=== PATIENT | female | born 1985 | race Caucasian/White ===

== ENCOUNTER → 2019-01-20 | Outpatient (CLI) | payer BC ==
--- NOTE | 2019-01-21 07:08 | US ---
EXAMINATION TYPE: US abdomen limited DATE OF EXAM: 01/20/2019 COMPARISON: NONE CLINICAL HISTORY: RUQ pain. RUQ pain EXAM MEASUREMENTS: Liver Length: 17.2 cm Gallbladder Wall: 0.2 cm CBD: 0.2 cm Right Kidney: 11.1 x 4.6 x 5.0 cm Pancreas: wnl Liver: wnl Gallbladder: No stones seen Evidence for sonographic Bazzi's sign: No CBD: wnl Right Kidney: wnl IMPRESSION: 1. No acute process.
--- NOTE | 2019-01-21 07:12 | US ---
EXAMINATION TYPE: US pelvic complete DATE OF EXAM: 01/20/2019 COMPARISON: NONE CLINICAL HISTORY: R10.2 FEMALE PELVIC PAIN. pain and discharge x1 day hx of pcos TECHNIQUE: Transabdominal (TA). EXAM MEASUREMENTS: Uterus: 10.4 x 5.0 x 7.0 cm Endometrial Stripe: 0.7 cm Right Ovary: 3.6 x 2.0 x 2.1 cm Left Ovary: 3.0 x 1.2 x 2.2 cm 1. Uterus: Anteverted wnl 2. Endometrium: wnl 3. Right Ovary: wnl 4. Left Ovary: wnl 5. Bilateral Adnexa: wnl 6. Posterior cul-de-sac: wnl IMPRESSION: No acute process
== END | disposition home or self-care (01) ==
LOC: RADUSWWP 16:57
PROVIDERS: ATTEND Internal Medicine
DX: R10.11 Right upper quadrant pain (principal); R10.2 Pelvic and perineal pain; Z88.1 Allergy status to other antibiotic agents
CPT/HCPCS: 76705; 76856

== ENCOUNTER 2019-01-25 06:40 | Emergency (ER) | payer BC ==
[2019-01-25] MEDS ORDERED: SODIUM CHLORIDE 0.9% 1,000 ML IV STA (07:22)
--- NOTE | 2019-01-25 07:25 | ED ---
General Adult HPI - General Chief complaint: Abdominal Pain Stated complaint: Pelvic/Abdominal Pain Time Seen by Provider: 01/25/19 07:16 Source: patient, RN notes reviewed, old records reviewed Mode of arrival: ambulatory Limitations: no limitations - History of Present Illness Initial comments: 33-year-old female presents for evaluation of abdominal pain. She's had intermittent abdominal pain over the past 2 weeks. This steadily worsened. She states she was seen by her primary care physician or to order ultrasound of both the pelvis and gallbladder. She reported these as normal. She's had persistent symptoms predominantly in the lower abdomen but also complains of some bloating and upper abdominal pain. Denies vomiting. Denies fever. Denies dysuria. She states her last bowel movement was yesterday. No diarrhea. Denies vaginal disc harge, states she is currently on her period. She does have history of PCOS and thought this may be related to cyst rupture. - Related Data Home Medications Medication Instructions Recorded Confirmed Dextroamphetamine/Amphetamine 30 mg PO DAILY 01/25/19 01/25/19 [Adderall] Allergies Allergy/AdvReac Type Severity Reaction Status Date / Time sulfamethoxazole Allergy Unknown Verified 01/25/19 07:56 [From Bactrim] trimethoprim [From Bactrim] Allergy Unknown Verified 01/25/19 07:56 Review of Systems ROS Statement: Those systems with pertinent positive or pertinent negative responses have been documented in the HPI. ROS Other: All systems not noted in ROS Statement are negative. Past Medical History Past Medical History: No Reported History History of Any Multi-Drug Resistant Organisms: None Reported Additional Past Surgical History / Comment(s): wisdom teeth Past Psychological History: ADD/ADHD Smoking Status: Current every day smoker Past Alcohol Use History: Occasional Past Drug Use History: None Reported General Exam Limitations: no limitations General appearance: alert, in no apparent distress Head exam: Present: atraumatic, normocephalic Eye exam: Present: normal appearance ENT exam: Present: normal exam Neck exam: Present: normal inspection. Absent: tenderness, meningismus Respiratory exam: Present: normal lung sounds bilaterally. Absent: respiratory distress, wheezes Cardiovascular Exam: Present: regular rate, normal rhythm GI/Abdominal exam: Present: soft, distended, tenderness (Generalized tenderness, worse on the right lower quadrant). Absent: guarding, rebound Extremities exam: Present: normal inspection, normal capillary refill. Absent: pedal edema, calf tenderness Neurological exam: Present: alert, oriented X3 Psychiatric exam: Present: normal affect, normal mood Skin exam: Present: warm, dry, intact. Absent: cyanosis, diaphoretic Course Vital Signs 01/25/19 01/25/19 01/25/19 06:51 08:00 08:30 Temperature 98.7 F 99.0 F Pulse Rate 91 65 Respiratory 20 16 16 Rate Blood Pressure 120/76 124/78 122/74 O2 Sat by Pulse 100 98 99 Oximetry Medical Decision Making - Medical Decision Making 33-year-old female with 2 weeks of abdominal pain. Pain is generalized, she does have some right lower quadrant tenderness, no rebound or guarding. She had an outpatient ultrasound which is reviewed, she had both ultrasound study of the pelvis and the gallbladder. These were both reviewed and normal. She has mild leukocytosis 13.1, she has normal CMP, urinalysis negative, urine test negative. She has CT showing delayed stool passage and possible enteritis. She does report a change in her bowel movements. Patient is well-appearing with s table vitals. She will be given trial of magnesium supplementation, MiraLAX and increased hydration. She is given GI follow-up. She will return with worsening or changing symptoms. - Lab Data Result diagrams: 01/25/19 07:45 01/25/19 07:45 Lab Results 01/25/19 01/25/19 01/25/19 Range/Units 07:45 07:45 07:45 WBC 13.1 H (3.8-10.6) k/uL RBC 4.12 (3.80-5.40) m/uL Hgb 12.6 (11.4-16.0) gm/dL Hct 38.2 (34.0-46.0) % MCV 92.9 (80.0-100.0) fL MCH 30.5 (25.0-35.0) pg MCHC 32.8 (31.0-37.0) g/dL RDW 12.6 (11.5-15.5) % Plt Count 361 (150-450) k/uL Neutrophils % 74 % Lymphocytes % 15 % Monocytes % 7 % Eosinophils % 3 % Basophils % 0 % Neutrophils # 9.6 H (1.3-7.7) k/uL Lymphocytes # 2.0 (1.0-4.8) k/uL Monocytes # 0.9 (0-1.0) k/uL Eosinophils # 0.4 (0-0.7) k/uL Basophils # 0.0 (0-0.2) k/uL Sodium 138 (137-145) mmol/L Potassium 4.1 (3.5-5.1) mmol/L Chloride 102 (98-107) mmol/L Carbon Dioxide 27 (22-30) mmol/L Anion Gap 9 mmol/L BUN 9 (7-17) mg/dL Creatinine 0.60 (0.52-1.04) mg/dL Est GFR (CKD-EPI)AfAm >90 (>60 ml/min/1.73 sqM) Est GFR (CKD-EPI)NonAf >90 (>60 ml/min/1.73 sqM) Glucose 146 H (74-99) mg/dL Calcium 9.0 (8.4-10.2) mg/dL Total Bilirubin 0.5 (0.2-1.3) mg/dL AST 13 L (14-36) U/L ALT 13 (9-52) U/L Alkaline Phosphatase 69 (38-126) U/L Total Protein 6.9 (6.3-8.2) g/dL Albumin 3.9 (3.5-5.0) g/dL Lipase 63 (23-300) U/L HCG, Quant <2.4 mIU/mL Urine Color Urine Appearance (Clear) Urine pH (5.0-8.0) Ur Specific [place] (1.001-1.035) Urine Protein (Negative) Urine Glucose (UA) (Negative) Urine Ketones (Negative) Urine Blood (Negative) Urine Nitrite (Negative) Urine Bilirubin (Negative) Urine Urobilinogen (<2.0) mg/dL Ur Leukocyte Esterase (Negative) Urine RBC (0-5) /hpf Urine WBC (0-5) /hpf Ur Squamous Epith Cells (0-4) /hpf Urine Bacteria (None) /hpf Urine Mucus (None) /hpf Urine HCG, Qual Not Detected (Not Detectd) 01/25/19 Range/Units 07:45 WBC (3.8-10.6) k/uL RBC (3.80-5.40) m/uL Hgb (11.4-16.0) gm/dL Hct (34.0-46.0) % MCV (80.0-100.0) fL MCH (25.0-35.0) pg MCHC (31.0-37.0) g/dL RDW (11.5-15.5) % Plt Count (150-450) k/uL Neutrophils % % Lymphocytes % % Monocytes % % Eosinophils % % Basophils % % Neutrophils # (1.3-7.7) k/uL Lymphocytes # (1.0-4.8) k/uL Monocytes # (0-1.0) k/uL Eosinophils # (0-0.7) k/uL Basophils # (0-0.2) k/uL Sodium (137-145) mmol/L Potassium (3.5-5.1) mmol/L Chloride (98-107) mmol/L Carbon Dioxide (22-30) mmol/L Anion Gap mmol/L BUN (7-17) mg/dL Creatinine (0.52-1.04) mg/dL Est GFR (CKD-EPI)AfAm (>60 ml/min/1.73 sqM) Est GFR (CKD-EPI)NonAf (>60 ml/min/1.73 sqM) Glucose (74-99) mg/dL Calcium (8.4-10.2) mg/dL Total Bilirubin (0.2-1.3) mg/dL AST (14-36) U/L ALT (9-52) U/L Alkaline Phosphatase (38-126) U/L Total Protein (6.3-8.2) g/dL Albumin (3.5-5.0) g/dL Lipase (23-300) U/L HCG, Quant mIU/mL Urine Color Yellow Urine Appearance Clear (Clear) Urine pH 6.0 (5.0-8.0) Ur Specific [place] 1.013 (1.001-1.035) Urine Protein Negative (Negative) Urine Glucose (UA) Negative (Negative) Urine Ketones Negative (Negative) Urine Blood Moderate H (Negative) Urine Nitrite Negative (Negative) Urine Bilirubin Negative (Negative) Urine Urobilinogen 2.0 (<2.0) mg/dL Ur Leukocyte Esterase Negative (Negative) Urine RBC <1 (0-5) /hpf Urine WBC 4 (0-5) /hpf Ur Squamous Epith Cells 1 (0-4) /hpf Urine Bacteria Rare H (None) /hpf Urine Mucus Few H (None) /hpf Urine HCG, Qual (Not Detectd) Disposition Clinical Impression: Abdominal pain Disposition: HOME SELF-CARE Condition: Good Instructions (If sedation given, give patient instructions): Abdominal Pain (ED) Additional Instructions: Please increase fluid intake, take MiraLAX daily, as well as magnesium supplementation. Is patient prescribed a controlled substance at d/c from ED?: No Referrals: Juliane Drake MD [Primary Care Provider] - 1-2 days Ravindra Guzman MD [STAFF PHYSICIAN] - 1-2 days Time of Disposition: 09:55
[2019-01-25 07:59] LABS: Basophils % (A) 0 %; Eosinophils # (A) 0.4 k/uL (0-0.7); Eosinophils % (A) 3 %; HCT 38.2 % (34.0-46.0); HGB 12.6 gm/dL (11.4-16.0); Lymphocytes % (A) 15 %; MCH 30.5 pg (25.0-35.0); MCHC 32.8 g/dL (31.0-37.0); MCV 92.9 fL (80.0-100.0); Mean Platelet Volume 6.9; Monocytes # (A) 0.9 k/uL (0-1.0); Monocytes % (A) 7 %; Neutrophils # (A) 9.6 k/uL (1.3-7.7); Neutrophils % (A) 74 %; Platelet Count 361 k/uL (150-450); RBC 4.12 m/uL (3.80-5.40); RDW 12.6 % (11.5-15.5); WBC 13.1 k/uL (3.8-10.6)
[2019-01-25 08:11] LABS: ALT 13 U/L (9-52); AST 13 U/L (14-36); African American GFR (CKD) >90 (>60 ml/min/1.73 sqM); Albumin 3.9 g/dL (3.5-5.0); Alkaline Phosphatase 69 U/L (38-126); Anion Gap 9 mmol/L; Blood Urea Nitrogen 9 mg/dL (7-17); Carbon Dioxide 27 mmol/L (22-30); Chloride 102 mmol/L (98-107); Glucose 146 mg/dL (74-99); Lipase 63 U/L (23-300); Potassium 4.1 mmol/L (3.5-5.1); Sodium 138 mmol/L (137-145); Total Bilirubin 0.5 mg/dL (0.2-1.3); Total Protein 6.9 g/dL (6.3-8.2)
[2019-01-25 08:17] LABS: Appearance,Urine Clear (Clear); Bacteria,Urine Rare /hpf; Bilirubin,Urine Negative (Negative); Blood,Urine Moderate (Negative); Color,Urine Yellow; Glucose,Urine (UA) Negative (Negative); Ketones,Urine Negative (Negative); Leukocyte Esterase,Urine Negative (Negative); Mucus,Urine Few /hpf; Nitrite,Urine Negative (Negative); Protein,Urine Negative (Negative); RBC,Urine <1 /hpf (0-5); Specific Gravity,Urine 1.013 (1.001-1.035); Squamous Epithelial Cell,Urine 1 /hpf (0-4); WBC,Urine 4 /hpf (0-5)
[2019-01-25] MEDS ORDERED: KETOROLAC 30 MG/ML 1 ML VIAL IVP STA (08:22)
[2019-01-25 08:43] LABS: HCG,Quantitative Serum <2.4 mIU/mL
[2019-01-25 08:46] VITALS: PULSE 65; RESP 16; TEMP 99
--- NOTE | 2019-01-25 09:33 | CT ---
EXAMINATION TYPE: CT abdomen pelvis w con DATE OF EXAM: 01/25/2019 HISTORY: Pelvic and right lower quadrant pain for [address] DLP: 698.4mGycm Automated Exposure Control for Dose Reduction was Utilized. CONTRAST: CT scan of the abdomen and pelvis is performed without oral but with IV Contrast, patient injected wi th 100 mL of Isovue 300. COMPARISON: limited abdominal ultrasound and pelvic ultrasound from 5 days ago FINDINGS: LUNG BASES: No significant abnormality is appreciated. LIVER/GB: No significant abnormality is appreciated. PANCREAS: No significant abnormality is seen. SPLEEN: No significant abnormality is seen. ADRENALS: No significant abnormality is seen. KIDNEYS: Symmetric cortical medullary uptake and excretion without hydronephrosis seen bilaterally. BOWEL: Evaluation bowel is suboptimal secondary to lack of enteric contrast and patient having little intra-abdominal fat. Small bowel feces sign terminal ileum is noted coronal image 36 for reference. No suspicious small or large bowel dilatation seen. Finding consistent with delayed passage of ingest ed material to colonic level. No suspicious wall thickening in the terminal ileum. There is suggestio n of mild to moderate wall thickening of distal small bowel loops in the right upper pelvis anteriorl y inferior to this. Appendix not seen with certainty. UTERUS/ADNEXA: Anteverted uterus is redemonstrated. Small to moderate amount of free fluid in pelvis extending towards adnexa axial image 72. Left-sided pelvic phlebolith noted. LYMPH NODES: No greater than 1cm abdominal or pelvic lymph nodes are appreciated. OSSEOUS STRUCTURES: No significant abnormality is seen. OTHER: No significant additional abnormality is seen. IMPRESSION: Suboptimal study. Small to moderate amount of free fluid in pelvic cul-de-sac. No bowel o bstruction. Delayed passage of ingested material 2 colonic level. Probable distal enteritis, correlat e clinically for infectious and/or inflammatory etiologies. Terminal ileum felt within normal limits.
[2019-01-25 10:04] VITALS: BP 118/73
== END 2019-01-25 10:10 | disposition home or self-care (01) ==
LOC: EC 06:40
DX: R10.30 Lower abdominal pain, unspecified (principal); R10.10 Upper abdominal pain, unspecified; R14.0 Abdominal distension (gaseous); R10.84 Generalized abdominal pain; R10.813 Right lower quadrant abdominal tenderness; D72.829 Elevated white blood cell count, unspecified; Z32.02 Encounter for pregnancy test, result negative; F17.200 Nicotine dependence, unspecified, uncomplicated; F90.9 Attention-deficit hyperactivity disorder, unspecified type; Z79.899 Other long term (current) drug therapy; Z88.1 Allergy status to other antibiotic agents; Z88.2 Allergy status to sulfonamides
CPT/HCPCS: 36415; 80053; 83690; 85025; 81001; 81025; 84702; 74177; 99284; 96374; J1885; Q9967

== ENCOUNTER 2019-07-26 17:06 | Emergency (ER) | payer BC, OTHER ==
[2019-07-26] MEDS ORDERED: SODIUM CHLORIDE 0.9% 1,000 ML IV ONE (17:39)
--- NOTE | 2019-07-26 17:46 | ED ---
General Adult HPI - General Chief complaint: Abdominal Pain Stated complaint: 6wks preg, cramping Time Seen by Provider: 07/26/19 17:10 Source: patient, RN notes reviewed Mode of arrival: ambulatory Limitations: no limitations - History of Present Illness Initial comments: 34-year-old female presents to the emergency department for a chief complaint of abdominal cramping. Patient states she thinks she is 6 weeks but may be further along. She is unsure of her LMP. Patient states that today she had intermittent left and mid lower abdominal cramping. States this comes and goes. States it feels pelvic in nature. Denies any nausea vomiting or diarrhea. Patient denies any fevers or chills. Patient denies any vaginal bleeding. Patient does have a history of and is currently seeing Dr. Cummings. Patient has no other complaints at this time including shortness of breath, chest pain, nausea or vomiting, headache, or visual changes. - Related Data Home Medications Medication Instructions Recorded Confirmed Dextroamphetamine/Amphetamine 30 mg PO DAILY 01/25/19 01/25/19 [Adderall] Previous Rx's Medication Instructions Recorded Pnv No.95/Ferrous Fum/Folic AC 1 each PO DAILY #30 tablet 07/26/19 [ Multivitamin Tablet] Allergies Allergy/AdvReac Type Severity Reaction Status Date / Time sulfamethoxazole Allergy Unknown Verified 07/26/19 17:07 [From Bactrim] trimethoprim [From Bactrim] Allergy Unknown Verified 07/26/19 17:07 Review of Systems ROS Statement: Those systems with pertinent positive or pertinent negative responses have been documented in the HPI. ROS Other: All systems not noted in ROS Statement are negative. Past Medical History Past Medical History: No Reported History History of Any Multi-Drug Resistant Organisms: None Reported Additional Past Surgical History / Comment(s): wisdom teeth Past Psychological History: ADD/ADHD Smoking Status: Current every day smoker Past Alcohol Use History: Occasional Past Drug Use History: None Reported General Exam Limitations: no limitations General appearance: alert, in no apparent distress Head exam: Present: atraumatic, normocephalic, normal inspection Eye exam: Present: normal appearance, PERRL, EOMI. Absent: scleral icterus, conjunctival injection, periorbital swelling ENT exam: Present: normal exam, mucous membranes moist Neck exam: Present: normal inspection, full ROM. Absent: tenderness, meningismus, lymphadenopathy Respiratory exam: Present: normal lung sounds bilaterally. Absent: respiratory distress, wheezes, rales, rhonchi, stridor Cardiovascular Exam: Present: regular rate, normal rhythm, normal heart sounds. Absent: systolic murmur, diastolic murmur, rubs, gallop, clicks GI/Abdominal exam: Present: soft, normal bowel sounds. Absent: distended, tenderness (no significant LLQ tenderness, ), guarding, rebound, rigid External exam: Present: normal external exam. Absent: erythema, swelling, lesions, lacerations, ecchymosis Speculum exam: Present: normal speculum exam. Absent: erythema, vaginal discharge, cervical discharge, vaginal bleeding, foreign body, tissue, laceration By manual exam: Present: normal by manual exam, adnexal tenderness (minimal LLQ tenderness). Absent: cervical motion tenderness, adnexal mass, uterine enlargement, uterine tenderness Neurological exam: Present: alert Psychiatric exam: Present: normal affect, normal mood Course Vital Signs 07/26/19 07/26/19 07/26/19 17:07 17:58 18:47 Temperature 97.7 F 97.7 F Pulse Rate 83 83 85 Respiratory 16 16 18 Rate Blood Pressure 133/82 133/82 108/69 O2 Sat by Pulse 100 100 100 Oximetry Medical Decision Making - Medical Decision Making exam shows minimal left lower quadrant tenderness. This is more pelvic in nature.CBC CMP unremarkable. Urinalysis unremarkable. Trichomonas is negative. Ultrasound shows a possible early intrauterine gestational sac without adnexal mass. Follow-up recommended in 14 days. She reevaluated, pain is improved. She does have a hCG Quant of 14,000. This will be trended. This will be sent to patient's established [employer]PER[facility] Dr. Cummings. Discussed returning if she has any worsening symptoms or vaginal bleeding. - Lab Data Result diagrams: 07/26/19 17:55 07/26/19 17:55 Lab Results 07/26/19 07/26/19 07/26/19 Range/Units 17:30 17:55 17:55 WBC (3.8-10.6) k/uL RBC (3.80-5.40) m/uL Hgb (11.4-16.0) gm/dL Hct (34.0-46.0) % MCV (80.0-100.0) fL MCH (25.0-35.0) pg MCHC (31.0-37.0) g/dL RDW (11.5-15.5) % Plt Count (150-450) k/uL Neutrophils % % Lymphocytes % % Monocytes % % Eosinophils % % Basophils % % Neutrophils # (1.3-7.7) k/uL Lymphocytes # (1.0-4.8) k/uL Monocytes # (0-1.0) k/uL Eosinophils # (0-0.7) k/uL Basophils # (0-0.2) k/uL Sodium 136 L (137-145) mmol/L Potassium 4.2 (3.5-5.1) mmol/L Chloride 104 (98-107) mmol/L Carbon Dioxide 24 (22-30) mmol/L Anion Gap 8 mmol/L BUN 15 (7-17) mg/dL Creatinine 0.65 (0.52-1.04) mg/dL Est GFR (CKD-EPI)AfAm >90 (>60 ml/min/1.73 sqM) Est GFR (CKD-EPI)NonAf >90 (>60 ml/min/1.73 sqM) Glucose 126 H (74-99) mg/dL Calcium 9.7 (8.4-10.2) mg/dL Total Bilirubin 0.5 (0.2-1.3) mg/dL AST 21 (14-36) U/L ALT 25 (4-34) U/L Alkaline Phosphatase 43 (38-126) U/L Total Protein 7.8 (6.3-8.2) g/dL Albumin 4.7 (3.5-5.0) g/dL HCG, Quant 79070.4 mIU/mL Urine Color Urine Appearance (Clear) Urine pH (5.0-8.0) Ur Specific [place] (1.001-1.035) Urine Protein (Negative) Urine Glucose (UA) (Negative) Urine Ketones (Negative) Urine Blood (Negative) Urine Nitrite (Negative) Urine Bilirubin (Negative) Urine Urobilinogen (<2.0) mg/dL Ur Leukocyte Esterase (Negative) Urine HCG, Qual Detected (Not Detectd) Trichomonas Ag (Rapid) Negative (Negative) 07/26/19 07/26/19 Range/Units 17:55 17:55 WBC 11.4 H (3.8-10.6) k/uL RBC 4.14 (3.80-5.40) m/uL Hgb 12.8 (11.4-16.0) gm/dL Hct 38.6 (34.0-46.0) % MCV 93.3 (80.0-100.0) fL MCH 31.0 (25.0-35.0) pg MCHC 33.2 (31.0-37.0) g/dL RDW 12.4 (11.5-15.5) % Plt Count 318 (150-450) k/uL Neutrophils % 67 % Lymphocytes % 22 % Monocytes % 6 % Eosinophils % 4 % Basophils % 0 % Neutrophils # 7.7 (1.3-7.7) k/uL Lymphocytes # 2.5 (1.0-4.8) k/uL Monocytes # 0.6 (0-1.0) k/uL Eosinophils # 0.4 (0-0.7) k/uL Basophils # 0.0 (0-0.2) k/uL Sodium (137-145) mmol/L Potassium (3.5-5.1) mmol/L Chloride (98-107) mmol/L Carbon Dioxide (22-30) mmol/L Anion Gap mmol/L BUN (7-17) mg/dL Creatinine (0.52-1.04) mg/dL Est GFR (CKD-EPI)AfAm (>60 ml/min/1.73 sqM) Est GFR (CKD-EPI)NonAf (>60 ml/min/1.73 sqM) Glucose (74-99) mg/dL Calcium (8.4-10.2) mg/dL Total Bilirubin (0.2-1.3) mg/dL AST (14-36) U/L ALT (4-34) U/L Alkaline Phosphatase (38-126) U/L Total Protein (6.3-8.2) g/dL Albumin (3.5-5.0) g/dL HCG, Quant mIU/mL Urine Color Yellow Urine Appearance Clear (Clear) Urine pH 6.0 (5.0-8.0) Ur Specific [place] 1.021 (1.001-1.035) Urine Protein Negative (Negative) Urine Glucose (UA) Negative (Negative) Urine Ketones Negative (Negative) Urine Blood Negative (Negative) Urine Nitrite Negative (Negative) Urine Bilirubin Negative (Negative) Urine Urobilinogen <2.0 (<2.0) mg/dL Ur Leukocyte Esterase Negative (Negative) Urine HCG, Qual (Not Detectd) Trichomonas Ag (Rapid) (Negative) Disposition Clinical Impression: Abdominal pain during Disposition: HOME SELF-CARE Condition: Good Instructions (If sedation given, give patient instructions): Abdominal Pain in (ED) Additional Instructions: please take vitamins. Please take Tylenol for pain. If any worsening symptoms occur return to the emergency department. Otherwise repeat blood work in 2-3 days and follow up with your COMM[employer]ICATION [employer]S [employer]ER. Prescriptions: Pnv No.95/Ferrous Fum/Folic AC [ Multivitamin Tablet] 1 each PO DAILY #30 tablet Is patient prescribed a controlled substance at d/c from ED?: No Referrals: Juliane Drake MD [Primary Care Provider] - 1-2 days Time of Disposition: 20:13
[2019-07-26 18:13] LABS: Basophils % (A) 0 %; Eosinophils # (A) 0.4 k/uL (0-0.7); Eosinophils % (A) 4 %; HCT 38.6 % (34.0-46.0); HGB 12.8 gm/dL (11.4-16.0); Lymphocytes # (A) 2.5 k/uL (1.0-4.8); Lymphocytes % (A) 22 %; MCHC 33.2 g/dL (31.0-37.0); MCV 93.3 fL (80.0-100.0); Mean Platelet Volume 7.2; Monocytes # (A) 0.6 k/uL (0-1.0); Monocytes % (A) 6 %; Neutrophils # (A) 7.7 k/uL (1.3-7.7); Neutrophils % (A) 67 %; Platelet Count 318 k/uL (150-450); RBC 4.14 m/uL (3.80-5.40); RDW 12.4 % (11.5-15.5); WBC 11.4 k/uL (3.8-10.6)
[2019-07-26 18:19] LABS: Appearance,Urine Clear (Clear); Bilirubin,Urine Negative (Negative); Blood,Urine Negative (Negative); Color,Urine Yellow; Glucose,Urine (UA) Negative (Negative); Ketones,Urine Negative (Negative); Leukocyte Esterase,Urine Negative (Negative); Nitrite,Urine Negative (Negative); Protein,Urine Negative (Negative); Specific Gravity,Urine 1.021 (1.001-1.035); Urobilinogen,Urine <2.0 mg/dL (<2.0)
[2019-07-26 18:22] LABS: ALT 25 U/L (4-34); AST 21 U/L (14-36); African American GFR (CKD) >90 (>60 ml/min/1.73 sqM); Albumin 4.7 g/dL (3.5-5.0); Alkaline Phosphatase 43 U/L (38-126); Anion Gap 8 mmol/L; Blood Urea Nitrogen 15 mg/dL (7-17); Calcium 9.7 mg/dL (8.4-10.2); Carbon Dioxide 24 mmol/L (22-30); Chloride 104 mmol/L (98-107); Glucose 126 mg/dL (74-99); Non-African American GFR(CKD) >90 (>60 ml/min/1.73 sqM); Potassium 4.2 mmol/L (3.5-5.1); Sodium 136 mmol/L (137-145); Total Bilirubin 0.5 mg/dL (0.2-1.3); Total Protein 7.8 g/dL (6.3-8.2)
[2019-07-26 18:49] VITALS: RESP 18
[2019-07-26 19:04] LABS: HCG,Quantitative Serum 14336.4 mIU/mL
--- NOTE | 2019-07-26 19:53 | US ---
EXAMINATION TYPE: Transabdominal DATE OF EXAM: 07/26/2019 7:40 PM COMPARISON: US 2018 CLINICAL HISTORY: pain. Pain x 1 day. LMP unknown. Hx PCOS, LEEP, . . EXAM PERFORMED: Transabdominal (TA) EXAM MEASUREMENTS: GESTATIONAL AGE / DATING Physician Established: Not yet established. Dates by LMP: Unknown Dates by First Scan: This is first scan Dates by Current Scan for: Only possible gestational sac is seen at this time. (5 weeks/4 days) EDC: 03/23/2020 MATERNAL ANATOMY Uterus: 10.1 x 8.4 x 5.4 cm. Right Ovary: Not visualized. Left Ovary: 3.8 x 2.6 x 2.2 cm. Post CDS / Adnexa: Appear to be wnl Presence of free fluid: none seen Presence of corpus luteal cyst: none seen Presence of subchorionic bleed: not seen GESTATION / SURVEY MSD: 1.33 cm. (5 weeks/4 days) IUP: Only possible gestational sac is seen at this time. Date of LMP: Unknown Beta HcG (if available): 14,336.4 *Patient refused transvaginal exam at this time. IMPRESSION: Possible early intrauterine gestational sac. This measures 14 x 3 x 22 mm. No adnexal mass. Follow-up exam recommended in 14 days to confirm a living fetus of clinically indicated.
[2019-07-26 20:36] VITALS: BP 123/71; PULSE 94; TEMP 98.2
[2019-07-27 16:34] LABS: C. trachomatis,PCR Positive (Neg,Equiv); Chlamydia trachomatis Source Vagina
[2019-07-27 16:46] LABS: N. gonorrhoeae,PCR Negative (Neg,Equiv); Neisseria Source Vagina
== END 2019-07-26 20:36 | disposition home or self-care (01) ==
LOC: EC 17:06
DX: O99.89 Other specified diseases and conditions complicating pregnancy, childbirth and the puerperium (principal); R10.32 Left lower quadrant pain; O99.341 Other mental disorders complicating pregnancy, first trimester; F90.9 Attention-deficit hyperactivity disorder, unspecified type; O99.331 Smoking (tobacco) complicating pregnancy, first trimester; F17.200 Nicotine dependence, unspecified, uncomplicated; Z88.2 Allergy status to sulfonamides; Z79.899 Other long term (current) drug therapy; Z98.890 Other specified postprocedural states; Z3A.01 Less than 8 weeks gestation of pregnancy
CPT/HCPCS: 36415; 76801; 80053; 81003; 81025; 84702; 85025; 87070; 87491; 87591; 87808; 96360; 96361; 99284

== ENCOUNTER → 2019-08-16 | Outpatient (CLI) | payer OTHER ==
[2019-08-16 13:45] LABS: HCT 36.3 % (34.0-46.0); HGB 12.1 gm/dL (11.4-16.0); MCH 31.4 pg (25.0-35.0); MCHC 33.3 g/dL (31.0-37.0); MCV 94.2 fL (80.0-100.0); Mean Platelet Volume 7.4; Platelet Count 257 k/uL (150-450); RBC 3.86 m/uL (3.80-5.40); RDW 12.2 % (11.5-15.5); WBC 10.1 k/uL (3.8-10.6)
[2019-08-16 19:51] LABS: African American GFR (CKD) 139.8 (60.0-200.0); Non-African American GFR(CKD) 120.6 (60.0-200.0)
[2019-08-16 20:21] LABS: Hemoglobin A1C 6.2 % (4.0-6.0)
[2019-08-16 21:01] LABS: Hepatitis B Surface Antigen Non-Reactive (Non-Reactive)
== END | disposition home or self-care (01) ==
LOC: LABWHC1 12:10
PROVIDERS: ATTEND Obstetrics & Gynecology
DX: Z34.81 Encounter for supervision of other normal pregnancy, first trimester (principal)
CPT/HCPCS: 36415; 82565; 82950; 83036; 85027; 86762; 86780; 86850; 86900; 86901; 87340

== ENCOUNTER → 2019-08-19 | Outpatient (CLI) | payer OTHER ==
--- NOTE | 2019-08-19 22:04 | US ---
EXAMINATION TYPE: Transabdominal DATE OF EXAM: 08/19/2019 4:36 PM COMPARISON: Prior ultrasound July 26, 2019 CLINICAL HISTORY: Z36 confirm dates. Confirm dates. EXAM PERFORMED: Transabdominal (TA) EXAM MEASUREMENTS: GESTATIONAL AGE / DATING Physician Established: (09 weeks/0 days) EDC: 03/23/2020 Dates by LMP: ` (9 weeks/0 days) EDC: 03/23/2020 Dates by First Scan: (5 weeks/4 days) EDC: 03/23/2020 Dates by Current Scan for: ( 8 weeks/6 days) EDC: 03/24/2020 MATERNAL ANATOMY Uterus: 13.7 x 6.9 x 10.6 cm Right Ovary: Obscured by bowel gas. Left Ovary: Obscured by bowel gas. Post CDS / Adnexa: wnl Presence of free fluid: no Presence of corpus luteal cyst: no Presence of subchorionic bleed: no GESTATION / SURVEY CRL: 2.19 cm (8 weeks/6 days) Yolk Sac (normal less than 6mm): .4mm Heart Rate: 174 bpm Rhythm: Normal IUP: Viable IUP Single live intrauterine gestation is now confirmed as the gestational sac, yolk sac, and pole are identified on current study. No free fluid in pelvic cul-de-sac. Neither ovary is identified but no suspicious adnexal lesions are seen on images saved. IMPRESSION: Confirmation of single live intrauterine . Mean crown-rump length is 2.2 cm felicity esponding to 8 week 6 day old fetus.
== END | disposition home or self-care (01) ==
LOC: RADUSWWP 16:19
PROVIDERS: ATTEND Obstetrics & Gynecology
DX: Z36.9 Encounter for antenatal screening, unspecified (principal)
CPT/HCPCS: 76801

== ENCOUNTER 2020-03-20 09:56 | Inpatient (IN) | payer OTHER ==
[2020-03-16 11:59] VITALS: BMI 31.1
--- NOTE | 2020-03-17 12:48 | P.HPOB ---
History of Present Illness H&P Date: 03/17/20 Chief Complaint: Patient is presenting for repeat and tubal ligation This patient is a pleasant 34-year-old 3 para 2 female estimated date of confinement 03/23/2020 estimated gestational age 39-4/7 weeks who presents to labor and delivery for elective repeat section and also requesting permanent sterilization. is been complicated by most likely pre- gestational insulin-dependent diabetes. She's been seen by maternal medicine and has been having her diabetes controlled by them. Patient's history is such that in her previous in 2005 she had an insulin pump for gestational diabetes. Patient did not have any regular follow-up in the and term and most likely had diabetes throughout that time period until this . Patient had a previous section and she is requested repeat. Also requesting permanent sterilization. testing has been normal including a level III ultrasound cardiac echo. She is also been on acyclovir since approximately 34 weeks due to history of HSV and she did develop a lesion on the inner thigh at that time. is also been complicated by tobacco use and a positive first trimester chlamydial culture with a negative test of cure. Review of Systems Genitourinary: Reports Menstruation: Reports amenorrhea Past Medical History Past Medical History: Atrial Fibrillation, Diabetes Mellitus Additional Past Medical History / Comment(s): 2011 A-Fib, resolved. Gestational Diabetes. Herpes. currently. History of Any Multi-Drug Resistant Organisms: None Reported Past Surgical History: Section Additional Past Surgical History / Comment(s): [place] teeth. C-S x1. Past Anesthesia/Blood Transfusion Reactions: No Reported Reaction Past Psychological History: No Psychological Hx Reported Smoking Status: Current every day smoker Past Alcohol Use History: None Reported Past Drug Use History: None Reported - Past Family History Father Family Medical History: Cancer Additional Family Medical History / Comment(s): myeloid leukemia Medications and Allergies Home Medications Medication Instructions Recorded Confirmed Type Pnv No.95/Ferrous Fum/Folic AC 1 each PO DAILY #30 tablet 07/26/19 03/16/20 Rx [ Multivitamin Tablet] Acetaminophen [Tylenol Extra 500 - 1,000 mg PO DIRECTED PRN 03/16/20 03/16/20 History Strength] Acyclovir [Zovirax] 400 mg PO TID 03/16/20 03/16/20 History Allergies Allergy/AdvReac Type Severity Reaction Status Date / Time sulfamethoxazole Allergy Unknown Verified 03/16/20 11:44 [From Bactrim] trimethoprim [From Bactrim] Allergy worsened Verified 03/16/20 11:44 UTI Exam - OBG Physical Exam Abdomen: bowel sounds normal, no diffuse tenderness, no bruit present, no guarding noted, no hepatomegaly, no splenomegaly, no mass Vulva: both: normal Vagina: normal moisture, no discharge Cervix: no lesion, no discharge Uterus: enlarged Results blood work shows she is A-, rubella immune, RPR nonreactive, hepatitis B is negative, Glucola was 193 in the first trimester with a hemoglobin A1c of 6.2. Group B strep was negative, level III ultrasound and cardiac echoes were normal. Patient received RhoGAM on January 09. Patient declined TDAP. Assessment and Plan Assessment: This is a pleasant 34-year-old 3 para 1 female 39-4/7 weeks gestation is admitted to labor and delivery for repeat low transverse section and also requesting permanent sterilization with tubal ligation. Plan is repeat low transverse section and bilateral partial salpingectomy. Patient also has pre-gestational diabetes. She also has a history of herpes and has been on acyclovir. I have discussed the surgery in detail with the patient. She understands a tubal ligation is considered permanent however there is a failure rate of approximately 5 or less per thousand procedures done. She understands surgery itself has risks including risks of infection, bleeding, possible injury bowel, bladder, vessels, and/or other organs. She understands risk of DVT and/or pulmonary embolism. All the patient's questions are answered and a written consent is obtained. (1) 39 weeks gestation of Status: Acute Code(s): Z3A.39 - 39 WEEKS GESTATION OF SNOMED Code(s): 95625079 (2) Pregestational diabetes mellitus, modified White class B Status: Acute Code(s): O24.319 - UNSP PRE-EXISTING DIABETES IN , UNSP TRIMESTER SNOMED Code(s): 35888465 (3) Previous delivery affecting Status: Acute Code(s): O34.219 - MATERNAL CARE FOR UNSP TYPE SCAR FROM PREVIOUS DEL SNOMED Code(s): 426636899 (4) Family planning Status: Acute Code(s): Z30.09 - ENCOUNTER FOR OTH GENERAL CNSL AND ADVICE ON CONTRACEPTION SNOMED Code(s): 466846379
[2020-03-20] MEDS ORDERED: CITRIC ACID-SODIUM CITRATE 15 ML CUP PO ONE (10:08)
[2020-03-20] MEDS ORDERED: LACTATED RINGERS 1,000 ML IV ONE (10:08)
[2020-03-20] MEDS ORDERED: LACTATED RINGERS 1,000 ML IV SCH (10:08)
[2020-03-20 10:38] LABS: Basophils % (A) 0 %; Eosinophils # (A) 0.1 k/uL (0-0.7); Eosinophils % (A) 1 %; HCT 32.7 % (34.0-46.0); HGB 10.9 gm/dL (11.4-16.0); Lymphocytes % (A) 17 %; MCH 30.5 pg (25.0-35.0); MCHC 33.3 g/dL (31.0-37.0); MCV 91.7 fL (80.0-100.0); Monocytes # (A) 0.6 k/uL (0-1.0); Monocytes % (A) 5 %; Neutrophils # (A) 9.2 k/uL (1.3-7.7); Neutrophils % (A) 76 %; Platelet Count 267 k/uL (150-450); RBC 3.56 m/uL (3.80-5.40); RDW 13.9 % (11.5-15.5); WBC 12.1 k/uL (3.8-10.6)
[2020-03-20] MEDS ORDERED: fentaNYL (PF) 50 MCG/ML 2 ML AMP ONE (12:24)
[2020-03-20] MEDS ORDERED: KETOROLAC 30 MG/ML 1 ML VIAL ONE (12:24)
[2020-03-20] MEDS ORDERED: MORPHINE SULFATE (PF) 0.3 MG/0.3 ML SYR ONE (12:24)
[2020-03-20] MEDS ORDERED: ONDANSETRON 4 MG/2 ML VIAL ONE (12:24)
[2020-03-20] MEDS ORDERED: FAMOTIDINE 20 MG/2 ML VIAL ONE (12:24)
[2020-03-20] MEDS ORDERED: DEXAMETHASONE SOD PHOSPHATE 4 MG/ML 1 ML VIAL ONE (12:24)
[2020-03-20] MEDS ORDERED: KETOROLAC 30 MG/ML 1 ML VIAL IVP PRN (12:59)
[2020-03-20] MEDS ORDERED: diphenhydrAMINE 50 MG/ML 1 ML VIAL IVP PRN ×2 (12:59→13:16)
[2020-03-20] MEDS ORDERED: ONDANSETRON 4 MG/2 ML VIAL IVP PRN (12:59)
[2020-03-20] MEDS ORDERED: NALOXONE 0.4 MG/ML 1 ML VIAL IV PRN (12:59)
[2020-03-20] MEDS ORDERED: HYDROmorphone 0.5 MG/0.5 ML SYRINGE IVP PRN (12:59)
[2020-03-20] MEDS ORDERED: ZOLPIDEM 5 MG TAB PO PRN (13:16)
[2020-03-20] MEDS ORDERED: diphenhydrAMINE 25 MG CAP PO PRN (13:16)
[2020-03-20] MEDS ORDERED: IBUPROFEN 600 MG TAB PO PRN (13:16)
[2020-03-20] MEDS ORDERED: Rhogam IMMUNE GLOBULIN 1,500 UNIT/1 ML IM ONE (13:16)
[2020-03-20] MEDS ORDERED: METOCLOPRAMIDE 5 MG/ML 2 ML VIAL IVP PRN (13:16)
[2020-03-20] MEDS ORDERED: ACETAMINOPHEN TAB 325 MG TAB PO PRN (13:16)
[2020-03-20] MEDS ORDERED: SIMETHICONE 80 MG CHEWABLE PO PRN (13:16)
[2020-03-20] MEDS ORDERED: OXYTOCIN 20 UNITS/1000 ML NS 1,000 ML IV SCH (13:30)
[2020-03-20 14:05] LABS: Glucose,Whole Blood 119 mg/dL (75-99)
[2020-03-20 16:37] LABS: Glucose,Whole Blood 107 mg/dL (75-99)
--- NOTE | 2020-03-20 17:54 | P.OP ---
Date of Procedure: 03/20/20 Preoperative Diagnosis: #1: 39-4/7 week intrauterine . #2: Previous section requesting repeat. #3: Multi parity desires permanent sterilization Postoperative Diagnosis: Same Procedure(s) Performed: Repeat low transverse section and bilateral Filshie clip application. Anesthesia: spinal Surgeon: Bk Cummings Director Call Center Sales #1: Reg Orellana Estimated Blood Loss (ml): 900 Pathology: other (Placenta) Condition: stable Disposition: floor Indications for Procedure: Please see dictated H&P for intimate details of this patient's admission. Brief summary is a pleasant 34-year-old 3 para 1 female 39-4/7 weeks gestation is admitted to labor and delivery for elective repeat section and also requesting permanent sterilization. Patient understands this procedure and risks. She understands that a tubal ligation is considered permanent although is a failure rate of approximately 5 or less per thousand procedures done. Patient also understands surgery itself and apparently has risks and risks of infection, bleeding, possible injury bowel, bladder, vessels, and/or other organs. All the patient's questions are answered written consent is obtained. Operative Findings: This patient had a vigorous viable female infant Apgars 9 and 9 delivery time is 1244 hrs. Uterus tubes and ovaries appeared normal Description of Procedure: This patient is taken to the operating room where she is sat up and spinal anesthetic is administered without incident. Patient are to had a Gracia catheter placed to straight drain. Patient has abdominal prep and drape. After the appropriate timeout scalpels taken previous Pfannenstiel incision is incised. A second scalpel is taken down the fascia the fascia scored with a knife. Fascial incision extended bilaterally using the Valencia scissors. Fascia is then dissected sharply off the rectus muscles. Rectus muscles are the peritoneum identified and entered sharply. Peritoneal incision extended superior and inferior without difficulty. Bladder blade is then placed. Bladder peritoneum was taken off the lower uterine segment.'s note this time the lower uterine segment is not well-developed. Scalpels taken a low transverse uterine incision is made. There is loss of clear fluid. This incision extended bluntly. Despite attempts of fundal pressure unable to deliver the 's head through this incision, most likely due to the very small lower uterine segment. I extended more bluntly. A vacuum was then placed and with 1 application 's head is easily delivered through the incision. Mouth and nares are bulb suctioned. There is no evidence of nuchal cord. With fundal pressure we then have deliver the rest this infant's body. This is a vigorous viable female infant Apgars 9 and 9 delivery time is 1244 hrs. After delivery of the the umbilical cords doubly clamped and cut appears to be trivascular. Placenta is then manually extracted intact. The uterus is quite bulky, however it is externalized. Uterine incision demarcated with Messina clamps. The cavity is explored and appears to be clear of all debris. Uterine incision closed using 0 Vicryl running locked fashion 2 layers. Bladder peritoneum was reapproximated using a 3-0 Vicryl. It was difficult to remove the uterus at this time I felt best to place Filshie clips and set a suture on the fallopian tubes. Filshie clips is applied to the tubes bilaterally approximate 4 cm from the cornual insertion. Complete blockage of both fallopian tubes is noted. In the Filshie clips appear to be in place. The e xcess fluid was then removed from the abdomen and pelvis. Uterus is then placed back into the abdomen. Final inspection incision shows to be hemostatic. Final inspection of the Filshie clips shows a to be in place. This completed the parietal peritoneum was then identified and closed using 0 Vicryl running fashion. Rectus muscles were approximate 0 Vicryl interrupted fashion. Fascial incision then closed using 0 PDS. Fascial incision is intact and hemostatic. Subcutaneous tissues and closed using a 3-0 Vicryl. Skin is and closed using sera. All counts are correct 3. There are no complications. and mother are stable delivery room.
[2020-03-20 18:27] LABS: Hemoglobin A1C 6.3 % (4.0-6.0)
[2020-03-20] MEDS: LACTATED RINGERS 1,000 ML IV SCH ×2 (20:38→22:38)
[2020-03-20] MEDS: SENNOSIDES-DOCUSATE SODIUM 1 EACH TAB PO SCH (20:39)
[2020-03-20 21:34] LABS: Glucose,Whole Blood 171 mg/dL (75-99)
[2020-03-20] MEDS: KETOROLAC 30 MG/ML 1 ML VIAL IVP PRN (21:47)
[2020-03-21] MEDS: KETOROLAC 30 MG/ML 1 ML VIAL IVP PRN (04:59)
[2020-03-21 05:47] LABS: Basophils % (A) 0 %; Eosinophils # (A) 0.1 k/uL (0-0.7); Eosinophils % (A) 1 %; HCT 29.3 % (34.0-46.0); HGB 9.7 gm/dL (11.4-16.0); Lymphocytes # (A) 2.8 k/uL (1.0-4.8); Lymphocytes % (A) 17 %; MCH 30.8 pg (25.0-35.0); MCHC 33.3 g/dL (31.0-37.0); MCV 92.6 fL (80.0-100.0); Mean Platelet Volume 7.9; Monocytes # (A) 0.9 k/uL (0-1.0); Monocytes % (A) 6 %; Neutrophils # (A) 12.3 k/uL (1.3-7.7); Neutrophils % (A) 75 %; Platelet Count 243 k/uL (150-450); RBC 3.17 m/uL (3.80-5.40); RDW 13.8 % (11.5-15.5); WBC 16.4 k/uL (3.8-10.6)
--- NOTE | 2020-03-21 05:56 | P.PNOBGPC ---
Subjective - Subjective Patient reports: Reports appetite normal, Reports voiding normally, Reports pain well controlled, Reports ambulating normally : doing well Objective - Vital Signs Latest vital signs: Vital Signs Temp Pulse Resp BP Pulse Ox 03/21/20 05:51 16 03/21/20 04:15 98.3 F 56 L 14 114/75 98 03/21/20 02:00 14 03/21/20 00:00 97.9 F 63 16 119/69 97 03/20/20 22:00 16 03/20/20 20:00 97.9 F 60 16 128/69 99 03/20/20 18:58 16 03/20/20 17:00 16 03/20/20 15:59 98.3 F 55 L 16 122/75 98 03/20/20 15:04 65 16 115/63 98 03/20/20 14:21 69 16 118/57 97 03/20/20 14:06 63 16 118/56 98 03/20/20 13:59 16 98 03/20/20 13:36 63 16 126/80 99 03/20/20 13:21 97.1 F L 68 16 118/68 99 03/20/20 12:59 16 98 03/20/20 10:08 97.7 F 79 18 128/65 98 Intake and Output 03/20/20 03/20/20 03/21/20 14:59 22:59 06:59 Intake Total 950 Output Total 1764 400 175 Balance -814 -400 -175 Intake: IV 900 Oral 50 Output: Urine 400 175 Uretheral (Gracia) 400 Estimated Blood Loss 1764 Other: Voiding Method Indwelling Catheter Weight 84.822 kg - Exam Lungs: bilateral: normal Chest: Normal S1, Normal S2 Extremities: Present: normal Abdomen: Present: normal appearance, soft. Absent: distention, tenderness Incision: Present: normal, dry, intact Uterus: Present: normal, firm - Labs Labs: Abnormal Lab Results - Last 24 Hours (Table) 03/20/20 03/20/20 03/20/20 Range/Units 10:25 10:25 14:04 WBC 12.1 H (3.8-10.6) k/uL RBC 3.56 L (3.80-5.40) m/uL Hgb 10.9 L (11.4-16.0) gm/dL Hct 32.7 L (34.0-46.0) % Neutrophils # 9.2 H (1.3-7.7) k/uL POC Glucose (mg/dL) 119 H (75-99) mg/dL Hemoglobin A1c 6.3 H (4.0-6.0) % 03/20/20 03/20/20 03/21/20 Range/Units 16:35 21:32 05:23 WBC 16.4 H (3.8-10.6) k/uL RBC 3.17 L (3.80-5.40) m/uL Hgb 9.7 L (11.4-16.0) gm/dL Hct 29.3 L (34.0-46.0) % Neutrophils # 12.3 H (1.3-7.7) k/uL POC Glucose (mg/dL) 107 H 171 H (75-99) mg/dL Hemoglobin A1c (4.0-6.0) % Assessment and Plan Assessment: Postoperative day #1. Patient is resting without complaints. Vital signs are stable she is afebrile. Uterus is firm nontender she's having normal lochia. CBC today shows her hemoglobin was appropriate at 9.7. Incision is intact and dry. She had 1 elevated blood sugar last night after having some pop. My impression this is a normal course. Did discuss with the patient again in regards to her blood sugars and she understands that upon discharge she will need to follow up with her PCP for most likely pre-gestational diabetes. (1) 39 weeks gestation of Current Visit: No Status: Acute Code(s): Z3A.39 - 39 WEEKS GESTATION OF SNOMED Code(s): 48053225 (2) Pregestational diabetes mellitus, modified White class B Current Visit: No Status: Acute Code(s): O24.319 - UNSP PRE-EXISTING DIABETES IN , UNSP TRIMESTER SNOMED Code(s): 37454003 (3) Previous delivery affecting Current Visit: No Status: Acute Code(s): O34.219 - MATERNAL CARE FOR UNSP TYPE SCAR FROM PREVIOUS DEL SNOMED Code(s): 823234397 (4) Family planning Current Visit: No Status: Acute Code(s): Z30.09 - ENCOUNTER FOR OTH GENERAL CNSL AND ADVICE ON CONTRACEPTION SNOMED Code(s): 048437709
--- NOTE | 2020-03-21 05:57 | P.PN ---
Progress Note - Text Progress Note Date: 03/21/20 Postoperative day 1 status post section under spinal anesthesia, and intrathecal morphine given for postoperative analgesia, patient doing well, there is a anesthesia related competitions. Patient had no headache, vital signs stable Assessment and plan = postop day 1 status post , doing well there is no anesthesia related complication
[2020-03-21] MEDS: LACTATED RINGERS 1,000 ML IV SCH (06:04)
[2020-03-21 07:48] LABS: Glucose,Whole Blood 118 mg/dL (75-99)
[2020-03-21] MEDS ORDERED: INSULIN ASPART (NovoLOG) 100 UNIT/ML VIAL SQ PRN (07:52)
[2020-03-21] MEDS: SENNOSIDES-DOCUSATE SODIUM 1 EACH TAB PO SCH ×2 (08:05→20:21)
[2020-03-21 12:11] LABS: Glucose,Whole Blood 113 mg/dL (75-99)
[2020-03-21] MEDS ORDERED: ACETAMINOPHEN TAB 325 MG TAB PO PRN (13:57)
[2020-03-21 17:22] LABS: Glucose,Whole Blood 122 mg/dL (75-99)
[2020-03-21] MEDS ORDERED: HYDROcodone/APAP 7.5-325MG 1 EACH TAB PO PRN (19:57)
[2020-03-21] MEDS: HYDROcodone/APAP 5-325MG 1 EACH TAB PO PRN (20:21)
[2020-03-21] MEDS: SIMETHICONE 80 MG CHEWABLE PO PRN (20:22)
[2020-03-21 21:35] LABS: Glucose,Whole Blood 131 mg/dL (75-99)
[2020-03-21] MEDS: IBUPROFEN 600 MG TAB PO PRN (23:15)
[2020-03-22] MEDS: LACTATED RINGERS 1,000 ML IV SCH (00:47)
[2020-03-22 00:57] VITALS: RESP 16
[2020-03-22] MEDS: HYDROcodone/APAP 5-325MG 1 EACH TAB PO PRN ×2 (02:07→07:44)
[2020-03-22] MEDS: IBUPROFEN 600 MG TAB PO PRN (05:07)
--- NOTE | 2020-03-22 06:38 | P.PNOBGPC ---
Subjective - Subjective Patient reports: Reports appetite normal, Reports voiding normally, Reports pain well controlled, Reports ambulating normally : doing well Objective - Vital Signs Latest vital signs: Vital Signs Temp Pulse Resp BP 03/22/20 00:00 98.6 F 62 16 136/71 03/21/20 16:00 97.9 F 68 17 137/68 03/21/20 12:16 97.5 F L 66 16 117/74 03/21/20 08:00 98.1 F 69 16 127/61 Intake and Output 03/21/20 03/21/20 03/22/20 14:59 22:59 06:59 Intake Total 480 Balance 480 Intake: Oral 480 Other: # Voids 1 - Exam Lungs: bilateral: normal Chest: Normal S1, Normal S2 Extremities: Present: normal Abdomen: Present: normal appearance, soft. Absent: distention, tenderness Incision: Present: normal, dry, intact Uterus: Present: normal, firm - Labs Labs: Abnormal Lab Results - Last 24 Hours (Table) 03/21/20 03/21/20 03/21/20 Range/Units 07:43 12:09 17:19 POC Glucose (mg/dL) 118 H 113 H 122 H (75-99) mg/dL 03/21/20 Range/Units 21:31 POC Glucose (mg/dL) 131 H (75-99) mg/dL Assessment and Plan Assessment: *Operative day #2. Patient is resting without complaints. Patient wishes to go home. Vital signs are stable and she is afebrile. Uterus is firm nontender and her incision is intact and dry. Glucoses is been fine she had one dose sliding scale insulin. Plan today is to continue routine care and discharge home later this morning. (1) 39 weeks gestation of Current Visit: No Status: Acute Code(s): Z3A.39 - 39 WEEKS GESTATION OF SNOMED Code(s): 33334678 (2) Pregestational diabetes mellitus, modified White class B Current Visit: No Status: Acute Code(s): O24.319 - UNSP PRE-EXISTING DIABETES IN , UNSP TRIMESTER SNOMED Code(s): 37946388 (3) Previous delivery affecting Current Visit: No Status: Acute Code(s): O34.219 - MATERNAL CARE FOR UNSP TYPE SCAR FROM PREVIOUS DEL SNOMED Code(s): 175876746 (4) Family planning Current Visit: No Status: Acute Code(s): Z30.09 - ENCOUNTER FOR OTH GENERAL CNSL AND ADVICE ON CONTRACEPTION SNOMED Code(s): 241927684
--- NOTE | 2020-03-22 06:49 | P.DS ---
Providers Date of admission: 03/20/20 09:56 Expected date of discharge: 03/22/20 Attending physician: Bk Cummings Primary care physician: Stated None - Discharge Diagnosis(es) (1) 39 weeks gestation of Current Visit: No Status: Acute (2) Pregestational diabetes mellitus, modified White class B Current Visit: No Status: Acute (3) Previous delivery affecting Current Visit: No Status: Acute (4) Family planning Current Visit: No Status: Acute Hospital Course: Please see dictated H&P for intimate details of this patient's admission. Brief summary is a pleasant 34-year-old 3 para 1 female 39-4/7 weeks gestation admitted to labor and delivery for elective repeat section and permanent sterilization. Patient admitted she undergoes repeat low transverse section and bilateral Filshie clip application. Please see dictated delivery note. Postoperative patient does well felt be stable for discharge home follow up with me 1 week for an incision check. Patient's also instructed to contact her primary care physician for diabetes management. Procedures: Repeat low transverse section and bilateral Filshie clip application Patient Condition at Discharge: Good Plan - Discharge Summary Discharge Rx Participant: No New Discharge Prescriptions: New Ibuprofen [Motrin] 600 mg PO Q6HR PRN #30 tab PRN Reason: Mild Pain Or Fever >= 100.5 HYDROcodone/APAP 7.5-325MG [[place] 7.5-325] 1 each PO Q6H PRN #12 tab PRN Reason: Pain No Action Pnv No.95/Ferrous Fum/Folic AC [ Multivitamin Tablet] 1 each PO DAILY #30 tablet Acyclovir [Zovirax] 400 mg PO TID Acetaminophen [Tylenol Extra Strength] 500 - 1,000 mg PO DIRECTED PRN PRN Reason: Pain Discharge Medication List Pnv No.95/Ferrous Fum/Folic AC [ Multivitamin Tablet] 1 each PO DAILY #30 tablet 07/26/19 [Rx] Acetaminophen [Tylenol Extra Strength] 500 - 1,000 mg PO DIRECTED PRN 03/16/20 [History] Acyclovir [Zovirax] 400 mg PO TID 03/16/20 [History] HYDROcodone/APAP 7.5-325MG [[place] 7.5-325] 1 each PO Q6H PRN #12 tab 03/22/20 [Rx] Ibuprofen [Motrin] 600 mg PO Q6HR PRN #30 tab 03/22/20 [Rx] Follow up Appointment(s)/Referral(s): Bk Cummings MD [STAFF PHYSICIAN] - 04/03/20 1:30 pm (Please see me on May 01 at 3:15 PM for a appointment as well.) Patient Instructions/Handouts: (DC) Activity/Diet/Wound Care/Special Instructions: No heavy lifting or strenuous activities for 6 weeks. No intercourse for 6 weeks. Please call if any fever, chills, excessive vaginal bleeding, and/or abdominal pain. Discharge Disposition: HOME SELF-CARE
[2020-03-22 07:08] LABS: Glucose,Whole Blood 108 mg/dL (75-99)
[2020-03-22] MEDS: SIMETHICONE 80 MG CHEWABLE PO PRN (07:54)
[2020-03-22 08:52] VITALS: BP 136/78; PULSE 64; TEMP 97.9
[2020-03-22] MEDS: SENNOSIDES-DOCUSATE SODIUM 1 EACH TAB PO SCH (09:38)
== END 2020-03-22 09:20 | disposition home or self-care (01) | DRG 783 ==
LOC: 4FBP 09:56
PROVIDERS: ADMIT Obstetrics & Gynecology; ATTEND Obstetrics & Gynecology
PROC: 0UL70CZ Occlusion of Bilateral Fallopian Tubes with Extraluminal Device, Open Approach (ICD-10-PCS; principal; 2020-03-20 12:00)
PROC: 10D00Z1 Extraction of Products of Conception, Low, Open Approach (ICD-10-PCS; principal; 2020-03-20 12:00)
DX: O34.211 Maternal care for low transverse scar from previous cesarean delivery (principal); O24.12 Pre-existing type 2 diabetes mellitus, in childbirth; O98.32 Other infections with a predominantly sexual mode of transmission complicating childbirth; E11.9 Type 2 diabetes mellitus without complications; O99.334 Smoking (tobacco) complicating childbirth; A60.00 Herpesviral infection of urogenital system, unspecified; F17.210 Nicotine dependence, cigarettes, uncomplicated; Z37.0 Single live birth; Z3A.39 39 weeks gestation of pregnancy; Z86.32 Personal history of gestational diabetes; Z30.2 Encounter for sterilization; Z86.79 Personal history of other diseases of the circulatory system; Z79.899 Other long term (current) drug therapy; Z88.1 Allergy status to other antibiotic agents; Z88.2 Allergy status to sulfonamides; Z80.6 Family history of leukemia
CPT/HCPCS: 83036; 85025; 86850; 86870; 86880; 86900; 86901; 88307

== ENCOUNTER → 2023-05-30 | Outpatient (CLI) | payer OTHER ==
[2023-05-30 20:16] LABS: C-Peptide 1.56 ng/mL (0.81-3.85)
== END | disposition home or self-care (01) ==
LOC: LABWHC1 11:35
PROVIDERS: ATTEND Internal Medicine
DX: E11.65 Type 2 diabetes mellitus with hyperglycemia (principal)
CPT/HCPCS: 36415; 82947; 83036; 84681

== ENCOUNTER → 2025-01-20 | Outpatient (CLI) | payer OTHER ==
[2025-01-20 19:25] LABS: Microalbumin Creatinine Ratio <5 mg/g Cr (0-30)
[2025-01-20 19:27] LABS: Basophils # (A) 0.05 X 10*3/uL (0.00-0.10); Basophils % (A) 0.6 %; Eosinophils # (A) 0.14 X 10*3/uL (0.04-0.35); Eosinophils % (A) 1.6 %; HCT 40.9 % (37.2-46.3); HGB 13.3 g/dL (12.0-15.0); Lymphocytes # (A) 2.18 X 10*3/uL (0.90-5.00); Lymphocytes % (A) 24.9 %; MCH 30.9 pg (27.0-32.0); MCHC 32.5 g/dL (32.0-37.0); MCV 95.1 FL (80.0-97.0); Mean Platelet Volume 9.7 FL (9.5-12.2); Monocytes # (A) 0.88 X 10*3/uL (0.20-1.00); Monocytes % (A) 10.1 %; NRBC Per 100 WBC 0 X 10*3/uL (0.00-0.01); Neutrophils # (A) 5.48 X 10*3/uL (1.80-7.70); Neutrophils % (A) 62.6 %; Platelet Count 345 X 10*3/uL (140-440); RDW 12.7 % (11.5-14.5); WBC 8.75 X 10*3/uL (4.50-10.00)
[2025-01-20 19:48] LABS: ALT 25 U/L (8-44); AST 16 U/L (13-35); Albumin 4.6 g/dL (3.8-4.9); Alkaline Phosphatase 49 U/L (41-126); BUN/Creat Ratio 14.25 Ratio (12.00-20.00); Blood Urea Nitrogen 11.4 mg/dL (9.0-27.0); Calcium 9.7 mg/dL (8.7-10.3); Carbon Dioxide 25.5 mmol/L (21.6-31.8); Chloride 103 mmol/L (96-109); Chol/HDL Ratio 2.89 Ratio; Globulin 2.7 g/dL (1.6-3.3); Glucose 141 mg/dL (70-110); LDL Cholesterol,Calculated 105.9 mg/dL (0.0-131.0); Potassium 4.7 mmol/L (3.5-5.5); Sodium 139 mmol/L (135-145); Total Bilirubin 0.8 mg/dL (0.3-1.2); Total Protein 7.3 g/dL (6.2-8.2); VLDL Calculation 15.82 mg/dL (5.00-40.00)
== END | disposition home or self-care (01) ==
LOC: LABWHC1 13:56
PROVIDERS: ATTEND Internal Medicine
DX: Z00.01 Encounter for general adult medical examination with abnormal findings (principal); Z13.220 Encounter for screening for lipoid disorders; E11.65 Type 2 diabetes mellitus with hyperglycemia; E55.9 Vitamin D deficiency, unspecified
CPT/HCPCS: 36415; 80053; 80061; 82043; 82306; 82570; 83036; 85025